=== PATIENT | male | born 1970 | race Caucasian/White ===

== ENCOUNTER → 2020-04-04 14:23 | Outpatient (CLI) | payer BC, SELFPAY ==
[2020-04-04 17:57] LABS: Absolute Lymphocyte Count 1.85 X10^3/uL (0.83-4.51); Absolute Neutrophil Count 5.8 X10^3/uL (2.0-7.7); Basophil# 0.04 X10^3/uL; Basophil% 0.5 % (0-1); Eosinophil# 0.39 X10^3/uL; Eosinophils% 4.5 % (0-5); Hematocrit 50.6 % (40-54); Hemoglobin 16.2 g/dL (13.0-16.5); Lymphocyte # 1.85 X10^3/ul (4.0); Lymphocyte % 21.2 % (19-41); Mean Corpuscular Hgb 25.8 pg (27.0-32.0); Mean Corpuscular Volume 80.4 fL (80-94); Mean Platelet Vol. 10.9 fl (6.2-12.0); Monocyte# 0.61 X10^3/uL; NRBC Flagged by Analyzer 0 % (0-5); Neutrophil # 5.83 X10^3/uL (2.7-7.7); Neutrophil % 66.6 % (47-70); Platelet Count 225 K/mm3 (150-450); RBC Distribution Width CV 12.8 % (11.6-14.6); RBC Distribution Width SD 37.3 fl (35.1-43.9); Red Blood Count 6.29 M/mm3 (4.6-6.2); White Blood Count 8.7 K/mm3 (4.4-11.0)
[2020-04-04 18:13] LABS: Hemoglobin A1c 10.8 % (3.8-5.6)
[2020-04-04 18:22] LABS: AST(SGOT) 22 U/L (15-37); Alanine Aminotransfer ALT/SGPT 58 U/L (16-61); Albumin, Serum 3.8 g/dL (3.2-5.0); Alkaline Phosphatase 111 U/L (45-117); Anion Gap 7 (5-15); BUN 11 mg/dL (7-18); BUN/Creat Ratio 9.3 RATIO (10-20); Calcium,Total 8.8 mg/dL (8.5-10.1); Chloride 100 mmol/L (98-107); Creatinine, Serum 1.18 mg/dL (0.70-1.30); EST Glomerular Filtration Rate 70 mL/min (>60); Est Glom Filt Rate - Afr Amer 84 mL/min (>60); Globulin 3.7 g/dL (2.2-4.2); Glucose 392 mg/dL (74-106); Potassium 3.9 mmol/L (3.5-5.1); Protein, Total 7.5 g/dL (6.4-8.2); Sodium Level 135 mmol/L (136-145); Thyroid Stim Hormone (TSH) 0.94 uIU/mL (0.358-3.74)
== END ==
PROVIDERS: Visit Provider Family Medicine
DX: E78.5 Hyperlipidemia, unspecified (principal); I10 Essential (primary) hypertension; R73.01 Impaired fasting glucose; R53.83 Other fatigue
CPT/HCPCS: 36415; 80053; 83036; 84403; 84443; 85025

== ENCOUNTER → 2021-02-17 | Outpatient (CLI) | payer BC, SELFPAY | END | disposition home or self-care (01) | PROVIDERS: Visit Provider Family Medicine | DX: U07.1 COVID-19 (principal) | CPT/HCPCS: 87635; U0005; U0003 ==

== ENCOUNTER 2022-11-26 13:00 | Day surgery (SDC) | payer OTHER, SELFPAY ==
[2022-11-26] VITALS (8 sets, daily range): BP systolic 149–170; BP diastolic 91–109; PULSE 88–109; RESP 16; TEMP 36.1–36.4; O2SAT 96–97; BMI 34.4
--- NOTE | 2022-11-26 | COLBX_PTH ---
PATIENT: MARCOS THOMPSON LOC: EN U#:[id number] AGE/SX: 52/M ROOM: RE11/26/[address]: Dr. Uriah Parks DO : 1970 BED: DIS: 11/26/2022 SPEC #: [id number] RECD: 11/26/22 18:24 STATUS: ARTUR RELibrado #: [id number] GENARO: 11/26/22 00:[address]: Uriah Parks DEPT: SURGICAL PATHOLOGY RECD BY: Marcos Willis ENTERED: 11/29/22 09:34 SP TYPE: COLON BX OTHR DR: Kendy Primary Care Phys Tissues: Sigmoid colon biopsy Procedures: Surgery Specimen Level IV HEADER OPERATION: Colonoscopy with polypectomy PRE-OP DIAGNOSIS: Screening TISSUE SUBMITTED: Sigmoid polyp MICROSCOPIC DIAGNOSIS Sigmoid colon polyp, biopsy: Tubular adenoma. AM:reji 11/30/2022 MICROSCOPIC DESCRIPTION Slides are reviewed. GROSS DESCRIPTION Received in fixative is one container labeled with the patient's name and designated sigmoid polyp. The specimen consists of one irregular fragment of light paiz soft tissue that measures 1.0 x 0.8 x 0.3 cm. The specimen is bisected and totally submitted in one cassette. / AM:reji 11/29/2022 TC:1 CPT: 07233
[2022-11-26] MEDS: Lactated Ringers 1,000 ML 15 ML IV (14:06)
--- NOTE | 2022-11-26 14:06 | PCM.HP.BLA ---
History and Physical Date of Admission: 11/26/22 52 M who presents to the office today for PMH DMII, anxiety/depression, HTN, obesity, CATA, HLD. ? [facility] need for screening colon[facility]. *[facility] established 8..23 needing screening colonoscopy. Notes reflux a couple times a month with previous use of ranitidine; current use of famotidine or TUMs PRN. Reports NSAID use for knee pain. Postprandial BM with normal consistency and without urgency. ROS Const Constitutional: No anorexia, fatigue, fever(s), weight change or sleep problems Eyes Eyes: No change in vision ENT ENT: No abnormal hearing, difficulty swallowing, mouth lesions, tongue swelling or throat swelling Resp Respiratory: No cough or shortness of breath Cardio Cardiology: No chest pain at rest, chest pain with exertion, shortness of breath or dyspnea on exertion Gastro GI: No difficulty swallowing Genitourinary Male: No difficulty urinating or burning urination Musc Musculoskeletal: No joint pain, joint swelling, muscle weakness or decreased muscle mass Skin Skin: No hair loss in leg, yellowing of the eye, itchy eyes, rash, skin ulcer or skin swelling Neuro Neurology: No abnormal hearing, abnormal movements, confusion, unsteady gait/balance or memory loss Psych Psychiatric: No anxiety, No confusion and No memory loss Endo Endocrine: No fatigue or weight change Aller/Imm Allergy/Immunologic: No itchy eyes, throat swelling or tongue swelling Jorge A/Lymp Hematologic/Lymphatic: No easy bleeding, easy bruising or enlarged lymph nodes Exam Const General: cooperative and comfortable Nutritional Appearance: average body habitus and well nourished [facility] Head: normal to inspection Ears: hearing grossly normal bilaterally Nose: external nose normal Face and sinus: normal facial exam Mouth: oral mucosae normal Throat: posterior oropharynx normal Eyes General: appearance normal, both eyes and all related structures Neck Neck: normal visual inspection Chest Chest palpation & inspection: normal inspection of the chest and normal palpation of entire chest wall Resp Effort & Inspection: normal respiratory effort Auscultation: Bilateral: Clear to Auscultation Cardio Palpation: normal PMI Rate: regular rate Rhythm: regular rhythm GI Inspection: normal to inspection Auscultation: normal bowel sounds Percussion: normal to percussion Palpation: no hepatosplenomegaly Skin General: no rashes or lesions noted Neuro General: patient alert Extrem General: normal to inspection Psych Affect: normal affect Assessment and Plan Assessment and Plan (1) Colon cancer screening: Status: Chronic Plan: He will undergo screening colonoscopy. He was explained alternatives, risk, benefits including not withstanding bleeding, infection, sepsis, perforation, need for emergent surgery and . He will have an ASA of 2. (2) GERD (gastroesophageal reflux disease): Status: Chronic Qualifiers: Esophagitis presence: without esophagitis Qualified Code(s): K21.9 - Gastro-esophageal reflux disease without esophagitis Plan: At this time his gastroesophageal reflux disease is controlled with occasional Tums and occasional Zantac therapy. He does not get symptoms on daily basis. He denies smoking cigarettes, he has no family history of esophageal cancer, he does not have any esophageal dysphagia, nausea, vomiting. I do not think he needs upper endoscopy at this time because he has had mild symptoms for a long time and he does not have any risk factors for poor outcome at this time. Orders: Orders Colonoscopy 11/26/22 Z12.11 - Encounter for screening for malignant neoplasm of colon I have examined the patient and the H&P has been reviewed. There are no clinical changes since date of exam.
[2022-11-26 15:00] LABS: Bedside Glucose 197 mg/dL (74-106)
--- NOTE | 2022-11-26 15:42 | OP.COLON_ITS ---
Patient Name: Marcos Blair Procedure Date: 11/26/2022 3:01 PM Date of : 1970 Age: 52 Procedure: Colonoscopy Indications: Screening for colorectal malignant neoplasm Providers: Uriah Parks DO Medicines: Monitored Anesthesia Care Patient Profile: This is a 52 year old male. Refer to note in patient chart for documentation of history and physical. Last Colonoscopy: none. The patient's first colonoscopy is today. Complications: No immediate complications. Procedure: Pre-Anesthesia Assessment: - Prior to the procedure, a History and Physical was performed, and patient medications and allergies were reviewed. The patient is competent. The risks and benefits of the procedure and the sedation options and risks were discussed with the patient. All questions were answered and informed consent was obtained. Patient identification and proposed procedure were verified by the physician in the pre-procedure area. Mental Status Examination: normal. Airway Examination: normal oropharyngeal airway and neck mobility. Respiratory Examination: clear to auscultation. CV Examination: normal. Prophylactic Antibiotics: The patient does not require prophylactic antibiotics. Prior Anticoagulants: The patient has taken no anticoagulant or antiplatelet agents. ASA Grade Assessment: II - A patient with mild systemic disease. After reviewing the risks and benefits, the patient was deemed in satisfactory condition to undergo the procedure. The anesthesia plan was to use monitored anesthesia care (MAC). Immediately prior to administration of medications, the patient was re-assessed for adequacy to receive sedatives. The heart rate, respiratory rate, oxygen saturations, blood pressure, adequacy of pulmonary ventilation, and response to care were monitored throughout the procedure. The physical status of the patient was re-assessed after the procedure. After I obtained informed consent, the scope was passed under direct vision. Throughout the procedure, the patient's blood pressure, pulse, and oxygen saturations were monitored continuously. The Colonoscope was introduced through the anus and advanced to the terminal ileum. The colonoscopy was performed without difficulty. The patient tolerated the procedure well. The quality of the bowel preparation was adequate. The terminal ileum, ileocecal valve, appendiceal orifice, and rectum were photographed. Scope In: 3:13:53 PM Scope Withdrawal Time 0 hours 10 minutes 13 seconds Scope Out: 3:26:31 PM Total Procedure Duration Time 0 hours 12 minutes 38 seconds Findings: The perianal and digital rectal examinations were normal. A 15 mm polyp was found in the sigmoid colon. The polyp was sessile. The polyp was removed with a hot snare. Resection and retrieval were complete. Verification of patient identification for the specimen was done. Estimated blood loss was minimal. Multiple small and large-mouthed diverticula were found in the recto-sigmoid colon and sigmoid colon. Impression: - One 15 mm polyp in the sigmoid colon, removed with a hot snare. Resected and retrieved. - Diverticulosis in the recto-sigmoid colon and in the sigmoid colon. Recommendation: - Discharge patient to home. - Resume previous diet. - Continue present medications. - Await pathology results. - Repeat colonoscopy in 3 years for surveillance. Procedure Code(s): --- Professional --- 18681, Colonoscopy, flexible; with removal of tumor(s), polyp(s), or other lesion(s) by snare technique CPT copyright 2021 [employer]. All rights reserved. The codes documented in this report are preliminary and upon records management director review may be revised to meet current compliance requirements. Uriah Parks DO 11/26/2022 3:41:57 PM This report has been signed electronically. Number of Addenda: 0 Note Initiated On: 11/26/2022 3:01 PM
== END 2022-11-26 16:29 | disposition home or self-care (01) ==
LOC: EN 13:21 → AC 13:21
PROVIDERS: Visit Provider Internal Medicine Gastroenterology
PROC: 0DJD8ZZ Inspection of Lower Intestinal Tract, Via Natural or Artificial Opening Endoscopic (ICD-10-PCS; CPT 45378; principal; 2022-11-26 13:55)
DX: Z12.11 Encounter for screening for malignant neoplasm of colon (principal); K57.30 Diverticulosis of large intestine without perforation or abscess without bleeding; I10 Essential (primary) hypertension; E66.9 Obesity, unspecified; E78.5 Hyperlipidemia, unspecified; K21.9 Gastro-esophageal reflux disease without esophagitis; D12.5 Benign neoplasm of sigmoid colon; Z79.899 Other long term (current) drug therapy; Z79.84 Long term (current) use of oral hypoglycemic drugs; Z87.19 Personal history of other diseases of the digestive system
CPT/HCPCS: 45385; 82962; 88305; J7120; J2405

== ENCOUNTER → 2023-12-30 | Outpatient (CLI) | payer MEDICARE, BC, SELFPAY ==
[2023-12-30 11:11] LABS: ALB/GLOB Ratio 1.1 RATIO (0.9-2.4); AST(SGOT) 19 U/L (15-37); Alanine Aminotransfer ALT/SGPT 38 U/L (16-61); Albumin, Serum 3.7 g/dL (3.2-5.0); Alkaline Phosphatase 69 U/L (45-117); Anion Gap 7 (5-15); BUN 16 mg/dL (7-18); BUN/Creat Ratio 17.2 RATIO (10-20); Chloride 104 mmol/L (98-107); Cholesterol 218 mg/dL (200); Creatinine, Serum 0.93 mg/dL (0.70-1.30); EST Glomerular Filtration Rate 90 mL/min (>60); Est Glom Filt Rate - Afr Amer 109 mL/min (>60); Globulin 3.5 g/dL (2.2-4.2); Glucose 219 mg/dL (74-106); High Density Lipoprotein 51 mg/dL; PSA,Total- Diagnostic 0.95 ng/mL (0.0-4.0); Potassium 3.4 mmol/L (3.5-5.1); Protein, Total 7.2 g/dL (6.4-8.2); Sodium Level 137 mmol/L (136-145); Triglycerides 174 mg/dL; Very Low Density Lipoprotein 35 mg/dL (5-40)
[2023-12-30 11:17] LABS: Hemoglobin A1c 10.4 % (3.8-5.6)
== END | disposition home or self-care (01) ==
LOC: MTLAB 08:18
PROVIDERS: PCP Family Medicine; Referring Provider Family Medicine; Visit Provider Family Medicine
DX: Z00.00 Encounter for general adult medical examination without abnormal findings (principal); E11.9 Type 2 diabetes mellitus without complications; R53.83 Other fatigue
CPT/HCPCS: 36415; 80053; 80061; 83036; 84153; 84403; 84443

== ENCOUNTER → 2024-06-19 | Outpatient (CLI) | payer MEDICARE, BC, SELFPAY | END | disposition home or self-care (01) | LOC: SL 08:04 | PROVIDERS: PCP Family Medicine; Referring Provider Nurse Practitioner Family; Visit Provider Nurse Practitioner Family | DX: G47.10 Hypersomnia, unspecified (principal) | CPT/HCPCS: 95806 ==

== ENCOUNTER → 2024-07-03 | Outpatient (CLI) | payer MEDICARE, BC, SELFPAY ==
[2024-07-03 10:46] LABS: Anion Gap 12 (5-15); BUN 15 mg/dL (4-19); BUN/Creat Ratio 16.9 RATIO (10-20); Calcium,Total 9.6 mg/dL (7.6-11.0); Carbon Dioxide 22.8 mmol/L (21.0-32.0); Chloride 103 mmol/L (98-108); Cholesterol 145 mg/dL (<=200); Creatinine, Serum 0.89 mg/dL (0.70-1.20); EST Glomerular Filtration Rate 103 (>60); Glucose 145 mg/dL (70-99); High Density Lipoprotein 36 mg/dL; Low Density Lipoprotein Calc. 75 mg/dL; Potassium 3.7 mmol/L (3.3-5.1); Sodium Level 138 mmol/L (133-145); Triglycerides 171 mg/dL; Very Low Density Lipoprotein 34 mg/dL (5-40); cholesterol:hdl ratio screen 4.01
== END | disposition home or self-care (01) ==
LOC: MTLAB 07:45
PROVIDERS: PCP Family Medicine; Referring Provider Family Medicine; Visit Provider Family Medicine
DX: E11.9 Type 2 diabetes mellitus without complications (principal)
CPT/HCPCS: 36415; 80048; 80061

== ENCOUNTER → 2024-12-27 | Outpatient (CLI) | payer MEDICARE, BC, SELFPAY ==
--- OUTSIDE RECORDS SUMMARY | 2024-12-27 06:58 | XMS RPT_ITS | CCD ---
Author Organization [facility] Team Providers Care Freelance Operator Name Role Phone Kami FLOYD, Dr. Epps Primary Care Provider Dr. Mich Mcclure MD Referring Provider [phone] Rober BROOKS-CTrish Attending Provider Rober BRADFORDCTrish Referring Provider Dr. Mich Mcclure MD Attending Provider Mich Mcclure Attending Unavailable Kami, Mich Referring Unavailable Mcclure, Mich Primary Care Unavailable Mcclure, Mich Referring Unavailable Mcclure, Mich Primary Care Unavailable Kami, Mich Attending Unavailable Kami, Mich Primary Care Unavailable Trish Richter Attending Unavailable Trish Richter Referring Unavailable Kami, Mich Referring Unavailable Kami, Mich Primary Care Unavailable Trish Richter Attending Unavailable Kami, Mich Referring Unavailable Kami, Mich Primary Care Unavailable Trish Richter Attending Unavailable SELF, SELF Referring Unavailable DAFNE MONTES Attending Unavailable Medications Current Medications Medication Drug Class(es) Dates Sig (Normalized) Sig (Original) atorvastatin 10 mg oral tablet (3 sources) HMG-CoA Reductase Inhibitor Start: 07-22-2022 take 1 tablet by mouth once daily Atorvastatin 10 mg tablet Active 10 mg PO DAILY July 22, 2022 12:00am busPIRone hydrochloride 10 mg oral tablet (3 sources) Start: 11-24-2022 take 1 tablet by mouth once daily Buspirone 10 mg tablet Active 10 mg PO DAILY November 24, 2022 12:00am escitalopram 5 mg oral tablet (3 sources) Serotonin Reuptake Inhibitor Start: 11-24-2022 take 1 tablet by mouth once daily Escitalopram Oxalate 5 mg tablet Active 5 mg PO DAILY November 24, 2022 12:00am famotidine 20 mg oral tablet (3 sources) Histamine-2 Receptor Antagonist Start: 07-22-2022 Famotidine 20 mg tablet Active 20 mg PO NEEDED July 22, 2022 12:00am glimepiride 1 mg oral tablet (3 sources) Sulfonylurea Start: 07-22-2022 take 1 tablet by mouth once daily Glimepiride 1 mg tablet Active 1 mg PO DAILY July 22, 2022 12:00am hydroCHLOROthiazide 12.5 mg / lisinopril 10 mg oral tablet (3 sources) Thiazide Diuretic, Angiotensin Converting Enzyme Inhibitor Start: 07-22-2022 Lisinopril-Cabot chlorothiazide 10-12.5 mg tablet Active 1 {tbl} PO DAILY July 22, 2022 12:00am meclizine hydrochloride 25 mg oral tablet (3 sources) Antiemetic Start: 04-07-2023 take 1 tablet by mouth three times daily as needed for dizziness Meclizine 25 mg tablet Active 25 mg PO THREE TIMES A DAY as needed for dizziness April 07, 2023 1:00am meloxicam 15 mg oral tablet (3 sources) Nonsteroidal Anti-inflammatory Drug Start: 07-22-2022 take 1 tablet by mouth twice daily Meloxicam 15 mg tablet Active 15 mg PO TWICE A DAY July 22, 2022 12:00am metFORMIN hydrochloride 500 mg oral tablet (3 sources) Biguanide Start: 07-22-2022 take 4 tablets by mouth once daily Metformin 500 mg tablet Active 2000 mg PO DAILY July 22, 2022 12:00am modafinil 100 mg oral tablet (3 sources) Sympathomimetic-li ke Agent Start: 07-22-2022 take 1 tablet by mouth once daily Modafinil 100 mg tablet Active 100 mg PO DAILY July 22, 2022 12:00am Multivitamin With Minerals tablet (3 sources) Start: 07-22-2022 Multivitamin With Minerals tablet Active 1 {tbl} PO DAILY July 22, 2022 12:00am promethazine hydrochloride 25 mg oral tablet (3 sources) Phenothiazine Start: 04-07-2023 take 1 tablet by mouth every four to six hours as needed for nausea and vomiting Promethazine 25 mg tablet Active 25 mg PO EVERY 4-6 HOURS as needed for nausea and vomiting April 07, 2023 1:00am Problems Problem Classification Problem Date Documented Date Episodic/Chronic Diabetes mellitus without complication (1 source) Type 2 diabetes mellitus without complications; Translations: [Type 2 diabetes mellitus without complications] Onset: 07-10-2024 Chronic Esophageal disorders (3 sources) Gastroesophageal reflux disease; Translations: [Gastro-esophageal reflux disease without esophagitis] 10-11-2022 Chronic Other screening for suspected conditions (not mental disorders or infectious disease) (3 sources) Patient encounter status; Translations: [Encounter for screening for malignant neoplasm of colon] 10-11-2022 Episodic Residual codes; unclassified (7 sources) Daytime hypersomnia; Translations: [Hypersomnia, unspecified] 06-13-2024 Chronic Residual codes; unclassified (5 sources) Obstructive sleep apnea syndrome; Translations: [Obstructive sleep apnea (adult) (pediatric)] 06-13-2024 Chronic Residual codes; unclassified (1 source) Hypersomnia, unspecified; Translations: [Hypersomnia, unspecified] Onset: 09-12-2024 Chronic Residual codes; unclassified (1 source) Obstructive sleep apnea (adult) (pediatric); Translations: [Obstructive sleep apnea (adult) (pediatric)] Onset: 09-12-2024 Chronic Unclassified (1 source) Daytime hypersomnia Unclassified (1 source) G47.33 - Obstructive sleep apnea (adult) (pediatric),G47.10 - Hypersomnia, unspecified Unclassified (2 sources) Establish Care; Translations: [Establish Care] Onset: 10-12-2024 Results Test Name Value Interpretation Reference Range Facility Pulmonary Visit Reporton Pulmonary Visit Report [facility] Pulmonary Medicine [address] [place] [place] [address] OFFICE VISIT Date of Service: 09/12/24 MR#: [id number] Acct: [id number] Name: JERRY THOMPSON Rep #: [id number] : 1970 Provider: Trish Richter NP Age/Sex: 54/M Location[place] [facility] [place] Status: Signed Assessment and Plan Assessment and Plan (1) CATA (obstructive sleep apnea): Status: Suspected Plan: Referral to Dr. Montes, [facility] Sleep Medicine, for Virtual Visit. I do suspect that he continues to have a degree of obstructive sleep apnea despite weight loss that has not been able to be detected by home sleep study. Unfortunately, I am unable to write a prescription for a new device based off recent testing and patient is not willing to proceed with in-lab testing due to anxiety. (2) Daytime hypersomnia: Status: Acute Comment: ESS is 16 Plan: Continues. Likely due to untreated sleep apnea verses sleep onset/sleep maintenance insomnia. Avoid drowsy driving. Orders: Referrals Sleep Medicine G47.10 - Hypersomnia, unspecified, G47.33 - Obstructive sleep apnea (adult) (pediatric) Plan Details Follow Up: as needed HPI HPI Comments Details: Patient is a 54 male presents today for follow-up for recent testing for sleep disordered breathing. He is ambulatory currently on room air. He reports that he has had a diagnosis of obstructive sleep apnea in the past. He believes that his last sleep study was from 2014. He stopped using his device approximately 2 years ago because his machine was broken. Prior to that he had used his device for 5 to 10 years before it broke. He was struggling to get a new sleep study set up and a replacement device at that time that his device broke. He continues to report daytime hypersomnia. His notices a snoring and also has witnessed apnea. Since his baseline study he has lost 30 pounds he believes. He indicates that he has significant anxiety around sleep time. He reports that it takes him multiple hours to fall asleep. He reports that he sometimes does not fall asleep until 2 or 3 in the morning and then he awakens at 7 AM to get his children ready for school. He has tried various regimens including [id number] and prescribed medication to help with sleep onset. He does utilize a marijuana gummy" which does provide him some benefit. He is able to fall asleep if he were to watch TV or stretch his legs. He believes he is getting 3-4 hours of sleep nightly. He has no smoking history. He has no history of asthma. He does have a history of pneumonia but has not required hospitalization. Potential occupational exposure includes being [place] [employer] the [place] 6 months. 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 He denies shortness of breath cough wheeze. He denies fever chills body aches. He denies chest pain chest tightness and chest palpitations. He keeps his bedroom cool dark and quiet. Utilizes a sleep mask and keeps his fan on. ESS is 16. Documentation reviewed with patient today includes: Unattended sleep study from June 19, 2024 shows that the study did not meet criteria for sleep apnea. The recommendation is to consider an in laboratory sleep study if the clinical suspicion is high for sleep apnea. Intake Vital Signs 06/13/24 05:45 09/12/24 07:14 Height 5 ft 9 in 5 ft 9 in Weight: 231 lb BMI 34.1 BP 162/99 H Blood Pressure Location Lt brachial Position Sitting Respiration 20 H Pulse 94 Pulse Source Monitor Temp 97.4 F L Temperature Source Temporal Artery Pulse Oximetry (%) 95 Oxygen Delivery Method room air Intake Visit Reasons: 3 M FU Chief Complaint: vertigo sx dizziness vomitting Reconstructive Surgeon Required: No DME Vendor: pap- broken Accompanied by: Self Is patient in pain?: No Allergies No Known Allergies Allergy (Verified 09/12/24 08:44) Medications ???Medication ???Instructions ???Recorded ???Confirmed ???Type atorvastatin 10 mg tablet 10 mg PO DAILY 07/22/22 09/12/24 H istory famotidine 20 mg tablet 20 mg PO PRN 07/22/22 09/12/24 His tory glimepiride 1 mg tablet 1 mg PO DAILY 07/22/22 09/12/24 Hi story lisinopril 10 1 tab PO DAILY 07/22/22 09/12/24 H istory mg-hydrochlorothiaz anitra 12.5 mg tablet meloxicam 15 mg tablet 15 mg PO BID 07/22/22 09/12/24 His tory metformin 500 mg tablet 2,000 mg PO DAILY 07/22/22 5 History modafinil 100 mg tablet 100 mg PO DAILY 07/22/22 09/12/24 History multivitamin with minerals 1 tab PO DAILY 07/22/22 09/12/24 H istory buspirone 10 mg tablet 10 mg PO DAILY 11/24/22 09/12/24 H istory escitalopram oxalate 5 mg tablet 5 mg PO DAILY 11/24/22 09/12/24 Hi story meclizine 25 mg tablet 25 mg PO TID PRN dizziness #30 tab s 04/07/2309/12 (more content not included)... Normal [facility] Anion gap in Serum or Plasma Ordered By: Mich Mcclure on 07-03-2024 Anion gap [Moles/Vol] 12 mmol/L - [facility] BUN/creatinine ratioOrdered By: Mich Mcclure on 07-03-2024 Urea nitrogen/Creatinine [Mass ratio] 16.9 mg/mg - [facility] Basic Metabolic Profile (BMP )on 07-03-2024 BUN/CRE 16.9 RATIO Normal - [facility] Comment on above: Performed By: #### L 500.2500, L500.4100 #### [facility] Laboratory [address] [place], [address] Calcium [Mass/Vol] 9.6 mg/dL Normal 7.6-11.0 [facility] Comment on above: Performed By: #### L 500.2500, L500.4100 #### [facility] [address] [place], [address] Chloride [Moles/Vol] 103 mmol/L Normal 98-108 [facility] Comment on above: Performed By: #### L 500.2500, L500.4100 #### [facility] [address] [place], [address] CO2 [Moles/Vol] 22.8 mmol/L Normal 21.0-32.0 [facility] Comment on above: Performed By: #### L 500.2500, L500.4100 #### [facility] [address] [place], [address] Creatinine [Mass/Vol] 0.89 mg/dL Normal 0.70-1.20 [facility] Comment on above: Performed By: #### L 500.2500, L500.4100 #### [facility] [address] [place], [address] GAP 12 Normal - [facility] Comment on above: Performed By: #### L 500.2500, L500.4100 #### [facility] [address] [place], [address] GFR/1.73 sq M.predicted among non-blacks MDRD (S/P/Bld) [Vol rate/Area] 103 mL/min/{1.73_m2} Normal >60 [facility] Comment on above: Result Comment: mL/m in/1.73m2 CKD-EPI Creatinine Equation (2020) Performed By: #### L 500.2500, L500.4100 #### [facility] [address] [place], [address] Glucose [Mass/Vol] 145 mg/dL High 70-99 [facility] Comment on above: Performed By: #### L 500.2500, L500.4100 #### [facility] [address] [place], [address] Potassium [Moles/Vol] 3.7 mmol/L Normal 3.3-5.1 [facility] Comment on above: Performed By: #### L 500.2500, L500.4100 #### [facility] [address] [place], [address] Sodium [Moles/Vol] 138 mmol/L Normal 133-145 [facility] Comment on above: Performed By: #### L 500.2500, L500.4100 #### [facility] [address] [place], [address] Urea nitrogen [Mass/Vol] 15 mg/dL Normal 4-19 [facility] Comment on above: Performed By: #### L 500.2500, L500.4100 #### [facility] [address] [place], [address] Calculated very low density lipoprotein (VLDL) cholesterol measurementOrdered By: Mich Mcclure on 07-03-2024 Calculated very low density lipoprotein (VLDL) cholesterol measurement 34 mg/dL 5-40 [facility] Carbon dioxide, total [Moles /volume] in Central venous bloodOrdered By: Mich Mcclure on 07-03-2024 CO2 [Moles/Vol] 22.8 mmol/L 21.0-32.0 [facility] Chloride assayOrdered By: Wei Mcclure on 07-03-2024 Chloride [Moles/Vol] 103 mmol/L 98-108 [facility] Glomerular filtration rate ( GFR) estimation/1.73 sq m using serum, plasma, or whole bOrdered By: Mich Mcclure on 07-03-2024 GFR/1.73 sq M.predicted among non-blacks MDRD (S/P/Bld) [Vol rate/Area] 103 mL/min/{1.73_m2} >60 [facility] Comment on above: mL/min/1.73m2 CKD-EP I Creatinine Equation (2020) LDL calc ser/plasOrdered By: Mich Mcclure on 07-03-2024 Cholesterol in LDL [Mass/Vol] 75 mg/dL [facility] Comment on above: Sjlaijosgq=034-010 m g/dL & Higher Xsmy=926 mg/dL or greater Lipid Profileon 07-03-2024 CHOL:HDL 4.01 Normal [facility] Comment on above: Performed By: #### L 500.2500, L500.4100 #### [facility] [address] [place], [address] Cholesterol [Mass/Vol] 145 mg/dL Normal <=200 [facility] Comment on above: Result Comment: Chol esterol level, Desirable <200 mg/dL Borderline high cholesterol 200-239 mg/dL High cholesterol >=240 mg/dL Recommendations of the NCEP Adult Treatment Panel for the following risk-cutoff thresholds for the [place] population. Performed By: #### L 500.2500, L500.4100 #### [facility] [address] [place], [place], [address] Cholesterol in HDL [Mass/Vol] 36 mg/dL Low [facility] Comment on above: Result Comment: Nohemy onal Cholesterol Education Program (NCEP) guidelines: <40 mg/dL: Low HDL-cholesterol (major risk factor for CHD) >= 60 mg/dL: High HDL-cholesterol (negative risk factor for CHD) HDL-cholesterol is affected by a number of factors, e.g. smoking, exercise, hormones, sex and age. Performed By: #### L 500.2500, L500.4100 #### [facility] [address] [place], [address] Cholesterol in LDL [Mass/Vol] 75 mg/dL Normal [facility] Comment on above: Result Comment: Bord isujem=257-460 mg/dL Higher Kxje=591 mg/dL or greater Performed By: #### L 500.2500, L500.4100 #### [facility] [address] [place], [address] Cholesterol in VLDL [Mass/Vol] 34 mg/dL Normal 5-40 [facility] Comment on above: Performed By: #### L 500.2500, L500.4100 #### [facility] [address] [place], [address] Triglyceride [Mass/Vol] 171 mg/dL Normal [facility] Comment on above: Result Comment: The drugs N-Acetylcysteine and Metamizole may falsely depress this assay. Normal range: <150 mg/dL Borderline High: 150-199 mg/dL High: 200-499 mg/dL Very High: >500 mg/dL Performed By: #### L 500.2500, L500.4100 #### [facility] [address] [place], [address] Potassium measurement (mass/ volume)Ordered By: Mich Mcclure on 07-03-2024 Potassium (Unsp spec) [Mass/Vol] 3.7 mmol/L 3.3-5.1 [facility] Screening total cholesterol/ high density lipoprotein (HDL) cholesterol ratioOrdered By: Mich Mcclure on 07-03-2024 Cholesterol.total/Maddie sterol in HDL [Mass ratio] 4.01 {ratio} [facility] Serum creatinine measurement (mass/volume)Ordered By: Mich Mcclure on 07-03-2024 Creatinine [Mass/Vol] 0.89 mg/dL 0.70-1.20 [facility] Serum glucose measurement (m ass/volume)Ordered By: Mich Mcclure on 07-03-2024 Glucose [Mass/Vol] 145 mg/dL High 70-99 [facility] Serum or plasma calcium dean urement (mass/volume)Ordered By: Mich Mcclure on 07-03-2024 Calcium [Mass/Vol] 9.6 mg/dL 7.6-11.0 [facility] Serum or plasma cholesterol in HDL measurement (mass/volume)Ordered By: Mich Mcclure on 07-03-2024 Cholesterol in HDL [Mass/Vol] 36 mg/dL Low >40 [facility] Comment on above: National Cholesterol Education Program (NCEP) guidelines:<40 mg/dL: Low HDL-cholesterol (major risk factor for CHD)>= 60 mg/dL: High HDL-cholesterol (negative risk factor for CHD)HDL-cholesterol is affected by a number of factors, e.g. smoking, exercise, hormones, sex and age. Serum or plasma cholesterol measurement (mass/volume)Ordered By: Mich Mcclure on 07-03-2024 Cholesterol [Mass/Vol] 145 mg/dL <201 [facility] Comment on above: Cholesterol level, D esirable <200 mg/dLBorderline high cholesterol 200-239 mg/dLHigh cholesterol >=240 mg/dLRecommendations of the NCEP Adult Treatment Panel for the following risk-cutoff thresholds for the [place] population. Serum or plasma urea nitroge n measurement (mass/volume)Ordered By: Mich Mcclure on 07-03-2024 Urea nitrogen [Mass/Vol] 15 mg/dL 4-19 [facility] Sodium levelOrdered By: Mich Mcclure on 07-03-2024 Sodium [Moles/Vol] 138 mmol/L 133-145 [facility] Triglycerides measurementOrd ered By: Mich Mcclure on 07-03-2024 Triglyceride [Mass/Vol] 171 mg/dL <199 [facility] Comment on above: The drugs N-Acetylcy steine and Metamizole may falsely depress this assay. Normal range: <150 mg/dLBorderline High: 150-199 mg/dLHigh: 200-499 mg/dLVery High: >500 mg/dL Pulmonary Visit Reporton Pulmonary Visit Report [facility] [place] [address] [place] [address] OFFICE VISIT Date of Service: 06/13/24 MR#: [id number] Acct: [id number] Name: JERRY THOMPSON Rep #: [id number] : 1970 Provider: Trish Richter NP Age/Sex: 54/M Location[place] [facility] [place] Status: Signed Assessment and Plan Assessment and Plan (1) Daytime hypersomnia: Status: Acute Plan: Stop bang equals 7, I recommended a sleep study at this time. Utilizing shared decision making, the patient will undergo a home sleep study at this time. Due to the patient's high levels of anxiety he will likely have difficulty with sleep onset in the sleep lab. I have discussed how the recommendation would then be to proceed with an AutoPap device. Patient understands the importance of treating obstructive sleep apnea. He is agreeable to this plan. I recommend a compliance download prior to follow-up in 3 months. The patient should notify this practice if he struggles with using the device in the meantime. (2) CATA (obstructive sleep apnea): Status: Suspected Plan: I do suspect that he continues to have a degree of obstructive sleep apnea despite weight loss. Orders: Orders Unattended Sleep Study Today G47.10 - Hypersomnia, unspecified Plan Details Follow Up: 3 Months (LMR) HPI HPI Comments Details: Patient is a 54 male presents today for evaluation of sleep disordered breathing. He is ambulatory currently on room air. He is being referred from Dr. Mich Mcclure. He reports that he has had a diagnosis of obstructive sleep apnea in the past. He believes that his last sleep study was from 2014. He stopped using his device approximately 2 years ago because his machine was broken. Prior to that he had used his device for 5 to 10 years before it broke. He was struggling to get a new sleep study set up and a replacement device at that time that his device broke. He continues to report daytime hypersomnia. His notices a snoring and also has witnessed apnea. Since his baseline study he has lost 30 pounds he believes. He indicates that he has significant anxiety around sleep time. He reports that it takes him multiple hours to fall asleep. He reports that he sometimes does not fall asleep until 2 or 3 in the morning and then he awakens at 7 AM to get his children ready for school. He has tried various regimens including [id number] and prescribed medication to help with sleep onset. He does utilize a marijuana gummy" which does provide him some benefit. He has no smoking history. He has no history of asthma. He does have a history of pneumonia but has not required hospitalization. Potential occupational exposure includes being [place] [employer] the [place] 6 months. 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 He denies shortness of breath cough wheeze. He denies fever chills body aches. He denies chest pain chest tightness and chest palpitations. He keeps his bedroom cool dark and quiet. Utilizes a sleep mask and keeps his fan on. ESS is 16. STOP-BANG Assessment: 1. Do you snore? [Y] 2. Are you frequently tired during the day? [Y] 3. Have you been observed gasping or choking while asleep? [Y] 4. Do you have high blood pressure? [Y] 5. BMI - greater than 35kg/m2? [N] 6. Age - over 50 years old? [Y] 7. Neck Circumference - greater than 37 cm for females or 40 cm for males? [Y] 8. Gender - male? [Y] Total STOP-BANG score = [7] which indicates [high] risk for obstructive sleep apnea (yes to 3 or more questions = high risk of sleep apnea). Intake Vital Signs 04/07/23 10:43 06/13/24 05:45 Height 5 ft 9 in 5 ft 9 in Weight: 228 lb BMI 33.6 BP 144/98 H Blood Pressure Location Rt brachial Position Sitting Respiration 18 Pulse 100 Pulse Source Monitor Temp 97.3 F L Temperature Source Temporal Artery Pulse Oximetry (%) 97 Oxygen Delivery Method room air Intake Visit Reasons: CATA Reconstructive Surgeon Required: No Accompanied by: Self Is patient in pain?: No Allergies No Known Allergies Allergy (Verified 06/13/24 08:15) [facility] Medical History (Updated 06/13/24 @ 08:57 by Trish Richter, [employer] SOC[employer] WORKER-C) Wears contact lenses Wears glasses Diabetes Arthritis High cholesterol Restless legs Migraine headache Gastric reflux Non-smoker Sleep apnea Dyslipidemia Vitamin D deficiency Degeneration of intervertebral disc Pilonidal cyst without mention of abscess Type 2 diabetes mellitus Urinary frequency Hyperlipidemia Chronic pain of both knees CATA (obstructive sleep apnea) Hypertension PTSD (post-traumatic stress disorder) Depression Anxiety Surgical History Hx of arthroscopic knee surgery Hx of surgical procedure Hx of hernia (more content not included)... Normal [facility] Comprehensive Metabolic Prof ilon 12-30-2023 Albumin [Mass/Vol] 3.7 g/dL Normal 3.2-5.0 [facility] Comment on above: Performed By: #### L 500.4050, L501.9940, L501.9520, L509.3000, L501.9985, L500.4100 #### [facility] Laboratory [address] [place], [address] Albumin/Globulin [Mass ratio] 1.1 {ratio} Normal 0.9-2.4 [facility] Comment on above: Performed By: #### L 500.4050, L501.9940, L501.9520, L509.3000, L501.9985, L500.4100 #### [facility] [address] [place], [address] ALK P 69 U/L Normal 45-117 [facility] Comment on above: Performed By: #### L 500.4050, L501.9940, L501.9520, L509.3000, L501.9985, L500.4100 #### [facility] [address] [place], [address] ALT [Catalytic activity/Vol] 38 U/L Normal 16-61 [facility] Comment on above: Performed By: #### L 500.4050, L501.9940, L501.9520, L509.3000, L501.9985, L500.4100 #### [facility] [address] [place], [address] AST [Catalytic activity/Vol] 19 U/L Normal 15-37 [facility] Comment on above: Performed By: #### L 500.4050, L501.9940, L501.9520, L509.3000, L501.9985, L500.4100 #### [facility] [address] [place], [address] Bilirubin [Mass/Vol] 1.30 mg/dL High 0.20-1.00 [facility] Comment on above: Result Comment: For patients on eltrombopag therapy, use of Dimension Climax TBIL is not recommended. Performed By: #### L 500.4050, L501.9940, L501.9520, L509.3000, L501.9985, L500.4100 #### [facility] [address] [place], [address] BUN/CRE 17.2 RATIO Normal 10-20 [facility] Comment on above: Performed By: #### L 500.4050, L501.9940, L501.9520, L509.3000, L501.9985, L500.4100 #### [facility] [address] [place], [address] CA,Total 9.0 mg/dL Normal 8.5-10.1 [facility] Comment on above: Performed By: #### L 500.4050, L501.9940, L501.9520, L509.3000, L501.9985, L500.4100 #### [facility] [address] [place], [address] Chloride [Moles/Vol] 104 mmol/L Normal 98-107 [facility] Comment on above: Performed By: #### L 500.4050, L501.9940, L501.9520, L509.3000, L501.9985, L500.4100 #### [facility] [address] [place], [address] CO2 [Moles/Vol] 27.0 mmol/L Normal 21.0-32.0 [facility] Comment on above: Performed By: #### L 500.4050, L501.9940, L501.9520, L509.3000, L501.9985, L500.4100 #### [facility] [address] [place], [address] Creatinine [Mass/Vol] 0.93 mg/dL Normal 0.70-1.30 [facility] Comment on above: Result Comment: The validity of the calculated GFR GFRAA in patients over 70 years has not been determined. Clinical correlation is essential. Performed By: #### L 500.4050, L501.9940, L501.9520, L509.3000, L501.9985, L500.4100 #### [facility] [address] [place], [address] EST GFR - AA 109 mL/min Normal >60 [facility] Comment on above: Result Comment: Afri can Citizen [place] GFR Calc Performed By: #### L 500.4050, L501.9940, L501.9520, L509.3000, L501.9985, L500.4100 #### [facility] [address] [place], [address] GAP 7 Normal 5-15 [facility] Comment on above: Performed By: #### L 500.4050, L501.9940, L501.9520, L509.3000, L501.9985, L500.4100 #### [facility] [address] [place], [address] GFR/1.73 sq M.predicted among non-blacks MDRD (S/P/Bld) [Vol rate/Area] 90 mL/min/{1.73_m2} Normal >60 [facility] Comment on above: Result Comment: Non- GFR Calc Performed By: #### L 500.4050, L501.9940, L501.9520, L509.3000, L501.9985, L500.4100 #### [facility] [address] [place], [address] Globulin (S) [Mass/Vol] 3.5 g/dL Normal 2.2-4.2 [facility] Comment on above: Performed By: #### L 500.4050, L501.9940, L501.9520, L509.3000, L501.9985, L500.4100 #### [facility] [address] [place], [address] Glucose [Mass/Vol] 219 mg/dL High 74-106 [facility] Comment on above: Result Comment: Gluc ose result greater than or equal to 200 mg/dL suggests DIABETES MELLITUS per A.D.A. criteria. Performed By: #### L 500.4050, L501.9940, L501.9520, L509.3000, L501.9985, L500.4100 #### [facility] [address] [place], [address] Potassium [Moles/Vol] 3.4 mmol/L Low 3.5-5.1 [facility] Comment on above: Performed By: #### L 500.4050, L501.9940, L501.9520, L509.3000, L501.9985, L500.4100 #### [facility] [address] [place], [address] Sodium [Moles/Vol] 137 mmol/L Normal 136-145 [facility] Comment on above: Performed By: #### L 500.4050, L501.9940, L501.9520, L509.3000, L501.9985, L500.4100 #### [facility] [address] [place], [address] T PROT 7.2 g/dL Normal 6.4-8.2 [facility] Comment on above: Performed By: #### L 500.4050, L501.9940, L501.9520, L509.3000, L501.9985, L500.4100 #### [facility] [address] [place], [address] Urea nitrogen [Mass/Vol] 16 mg/dL Normal 7-18 [facility] Comment on above: Performed By: #### L 500.4050, L501.9940, L501.9520, L509.3000, L501.9985, L500.4100 #### [facility] [address] [place], [address] Hemoglobin A1con 12-30-2023 HbA1c (Bld) [Mass fraction] 10.4 % High 3.8-5.6 [facility] Comment on above: Result Comment: Norm al < 5.7 % Prediabetic 5.7 - 6.4 % Diabetic >or= 6.5 % Please note range changes. Performed By: #### L 500.4050, L501.9940, L501.9520, L509.3000, L501.9985, L500.4100 #### [facility] [address] [place], [address] Lipid Profileon 12-30-2023 Cholesterol [Mass/Vol] 218 mg/dL High 200 [facility] Comment on above: Result Comment: <200 mg/dL Desirable 200-240 mg/dL Borderline >240 mg/dL High Risk Performed By: #### L 500.4050, L501.9940, L501.9520, L509.3000, L501.9985, L500.4100 #### [facility] [address] [place], [address] Cholesterol in HDL [Mass/Vol] 51 mg/dL Normal [facility] Comment on above: Result Comment: The drugs N-Acetylcysteine and Metamizole may falsely depress this assay. Reference Range HDL <40 mg/dL Low HDL Cholesterol HDL >or= 60 mg/dL High HDL Cholesterol Performed By: #### L 500.4050, L501.9940, L501.9520, L509.3000, L501.9985, L500.4100 #### [facility] [address] [place], [address] Cholesterol in LDL [Mass/Vol] 132 mg/dL High 0-130 [facility] Comment on above: Performed By: #### L 500.4050, L501.9940, L501.9520, L509.3000, L501.9985, L500.4100 #### [facility] [address] [place], [address] Cholesterol in VLDL [Mass/Vol] 35 mg/dL Normal 5-40 [facility] Comment on above: Performed By: #### L 500.4050, L501.9940, L501.9520, L509.3000, L501.9985, L500.4100 #### [facility] [address] [place], [address] Triglyceride [Mass/Vol] 174 mg/dL Normal [facility] Comment on above: Result Comment: The drugs N-Acetylcysteine and Metamizole may falsely depress this assay. Serum Triglycerides Reference Interval Normal <150 mg/dL Borderline high 150 - 199 mg/dL High 200 - 499 mg/dL Very High > or = 500 mg/dL Performed By: #### L 500.4050, L501.9940, L501.9520, L509.3000, L501.9985, L500.4100 #### [facility] [address] [place], [address] PSA,Total- Diagnosticon 11-0 PSA, DIAGNOSTIC 0.95 ng/mL Normal 0.0-4.0 [facility] Comment on above: Result Comment: This test was performed using the TPSA assay method for the [employer]ener[employer] chemistry system. Values obtained with different assay methods cannot be used interchangably. When changing PSA assays in the course of monitoring a patient, additional sequential testing should be carried out to confirm baseline values. Performed By: #### L 500.4050, L501.9940, L501.9520, L509.3000, L501.9985, L500.4100 #### [facility] [address] [place], [place], [address] Testosterone, Serum Totalon 12-30-2023 Testosterone [Mass/Vol] 453.28 ng/dL Normal [facility] Comment on above: Result Comment: CENT RAL 90% REFERENCE RANGES MALE AGE <50 197.44 - 669.58 ng/dL MALE AGE > or = 50 187.72 - 684.19 ng/dL FEMALE AGE <50 8.38 - 35.01 ng/dL FEMALE AGE > or = 50 <7.00 - 35.92 ng/dL Effective as of 09/16/20 Performed By: #### L 500.4050, L501.9940, L501.9520, L509.3000, L501.9985, L500.4100 #### [facility] [address] [place], [place], [address] Thyroid Stim Hormone (TSH)on 12-30-2023 TSH 1.710 uIU/mL Normal 0.358-3.740 [facility] Comment on above: Performed By: #### L 500.4050, L501.9940, L501.9520, L509.3000, L501.9985, L500.4100 #### [facility] [address] [place], [place], [address] Vital Signs Date Time Vital Sign Value Performing Clinician Faci lity 09-12-2024 07:14-0400 Body mass index (BMI) [Ratio] 34.1 kg/m2 Dr. Mich Mcclure MD Work Phone: [facility] 09-12-2024 07:14040 Body temperature 97.4 [degF] Dr. Mich Mcclure MD Work Phone: [facility] 09-12-2024 07:14040 Body weight 104.[address] Mich Mcclure MD Work Phone: [facility] 09-12-2024 07:14-0400 Diastolic blood pressure 99 mm[Hg] Dr. Mich Mcclure MD Work Phone: [facility] 09-12-2024 07:14-0400 Heart rate 94 /min Dr. Mich Mcclure MD Work Phone: 2(663)116-862661 [address] 09-12-2024 07:14-0400 Respiratory rate 20 /min Dr. Mich Mcclure MD Work Phone: [facility] 09-12-2024 07:14-0400 SaO2% (BldA) [Mass fraction] 95 % Dr. Mich Mcclure MD Work Phone: 0(222)323-649194 [place] [address] 09-12-2024 07:14-0400 Systolic blood pressure 162 mm[Hg] Dr. Mich Mcclure MD Work Phone: 2(307)641-521294 [place] [address] 06-13-2024 05:45-0400 Body height 175.[address] Mich Mcclure MD Work Phone: 3([phone])370-688594 [place] [address] 06-13-2024 05:45-0400 Body mass index (BMI) [Ratio] 33.6 kg/m2 Dr. Mich Mcclure MD Work Phone: 8(538)417-927694 [place] [address] 06-13-2024 05:45-0400 Body temperature 97.3 [degF] Dr. Mich Mcclure MD Work Phone: 5(021)496-844528 [place] [address] 06-13-2024 05:45-0400 Body weight 103.[address] Mich Mcclure MD Work Phone: 3(041)028-714428 [place] [address] 06-13-2024 05:45-0400 Diastolic blood pressure 98 mm[Hg] Dr. Mich Mcclure MD Work Phone: 4(707)386-701361 [address] 06-13-2024 05:45-0400 Heart rate 100 /min Dr. Mich Mcclure MD Work Phone: 3(112)911-504628 [place] [address] 06-13-2024 05:45-0400 Respiratory rate 18 /min Dr. Mich Mcclure MD Work Phone: 7(253)980-127328 [place] [address] 06-13-2024 05:45-0400 SaO2% (BldA) [Mass fraction] 97 % Dr. Mich Mcclure MD Work Phone: [facility] 06-13-2024 05:45-0400 Systolic blood pressure 144 mm[Hg] Dr. Mich Mcclure MD Work Phone: [facility] Encounters Encounter Date Encounter Type Care Provider Facility Start: 10-12-2024 ambulatory SELF SELF Facility:[facility] Start: 09-12-2024 End: 09-12-2024 Patient encounter procedure [employer] Trish Rich[facility] Work Phone: Start: 09-12-2024 End: 09-12-[address] Mich Mcclure MD Work Phone: [facility] Start: 07-03-2024 End: 07-03-[address] Mich Mcclure MD Work Phone: [facility] Work Phone: Start: 07-03-2024 End: 07-03-[address] Mich Mcclure MD -[facility] Work Phone: Start: 07-03-2024 End: 07-03-2024 ambulatory Mich Mcclure Facility:[facility] Start: 06-19-2024 End: 06-19-[address] Mich Mcclure MD Work Phone: [facility] Work Phone: Start: 06-19-2024 End: 06-19-2024 Patient encounter procedure CECILIA Richter -[facility] Work Phone: Start: 06-19-2024 End: 06-19-2024 ambulatory Mich Mcclure Facility:[facility] Start: 06-13-2024 End: 06-13-2024 Patient encounter procedure CECILIA Richter [facility] Work Phone: Start: 06-13-2024 End: 06-13-2024 ambulatory Mich Mcclure Facility:[facility] Start: 05-29-2024 Encounter for genera l adult medical examination without abnormal findings Mich Mcclure [facility] Start: 12-30-2023 End: 12-30-2023 ambulatory Mich Mcclure Facility:[facility] Payers Date Payer Category Payer Medicare [id number] 2023 Self-pay 2022 Unknown [id number] 1970 Unknown [id number] [id number] Unknown [id number] 2.16.8 [id number] Unknown [id number] 2.16.8 [id number] Unknown [id number] 2.16.8 [id number] Unknown [id number] 2.16.8 [id number] Unknown [id number] 2.16.8 [id number] Social History Date Type Detail Facility Start: 06-13-2024 Tobacco smoking stat [facility] Never smoked tobacco (finding) [facility] Start: 1970 Sex Assigned At Male [facility] Evaluation note 06-13-2024 Note Date & Type Note Facility 06-13-2024 Evaluation note Diagnosis Onset Date Resolution Daytime hypersomnia acute June 13, 2024 8:09am CATA (obstructive sleep apnea) suspected June 13, 2024 8:09am [facility] Work Phone: Evaluation note 06-13-2024 Note Date & Type Note Facility 06-13-2024 Evaluation note Diagnosis Onset Date Resolution Daytime hypersomnia acute June 13, 2024 8:09am CATA (obstructive sleep apnea) suspected June 13, 2024 8:09am Daytime hypersomnia acute September 12, 2024 8:38am CATA (obstructive sleep apnea) suspected September 12, 2024 8:38am [facility] Work Phone: Hospital Discharge instructions Note Date & Type Note Facility Hospital Discharge instructions Ambulatory OrdersSleep Medicine Location: None Selected [facility] Work Phone: Reason for referral (narrative) Note Date & Type Note Facility Reason for referral (narrative) No reason for referral information available [facility] Work Phone: Chief Complaint and Reason for Visit Chief Complaint Admit Date CATA June 13, 2024 8:0 9am G47.10 - Hypersomnia, unspecified June 19, 2024 8:04am Reason for Visit Admit Date Daytime hypersomnia June 13, 2024 8:0 9am CATA (obstructive sleep apnea) May 8:09am Chief Complaint Admit Date CATA June 13, 2024 8:0 9am G47.10 - Hypersomnia, unspecified June 19, 2024 8:04am FASTING July 03, 2024 7:44a m Chief Complaint Admit Date CATA June 13, 2024 8:0 9am G47.10 - Hypersomnia, unspecified June 19, 2024 8:04am FASTING July 03, 2024 7:44a m 3 M FU September 12, 2024 8:38 am Reason for Visit Admit Date Daytime hypersomnia June 13, 2024 8:0 9am CATA (obstructive sleep apnea) May 8:09am Daytime hypersomnia September 12, 2024 8:38 am CATA (obstructive sleep apnea) September 12, 2024 8:38am Summary Purpose Family History No Family History Records FoundNo Family History Records Found Advance Directives No Advanced Directives Records FoundNo Advanced Directives Records Found Additional Source Comments Care Teams (unrecognized sec tion and content) Team Status: Active Member Role Status Dates Dr. Mich Mcclure MD Primary Care Provider Active Team Status: Inactive Member Role Status Dates Dr. Mich Mcclure MD Primary Care Provider Active Start: June 13, 2024 End: June 13, 2024 Dr. Mich Mcclure MD Referring Provider Active Start: June 13, 2024 End: June 13, 2024 LARRY Girffin Attending Provider Active Start: June 13, 2024 End: June 13, 2024 Team Status: Inactive Member Role Status Dates Dr. Mich Mcclure MD Primary Care Provider Active Start: June 19, 2024 End: June 19, 2024 LARRY Griffin Attending Provider Active Start: June 19, 2024 End: June 19, 2024 LARRY Griffin Referring Provider Active Start: June 19, 2024 End: June 19, 2024 Team Status: Inactive Member Role Status Dates Dr. Mich Mcclure MD Primary Care Provider Active Start: July 03, 2024 End: July 03, 2024 Dr. Mich Mcclure MD Attending Provider Active Start: July 03, 2024 End: July 03, 2024 Dr. Mich Mcclure MD Referring Provider Active Start: July 03, 2024 End: July 03, 2024 Team Status: Active Member Role/Relationship Status Dates Dr. Mich Mcclure MD Primary Care Provider Active Team Status: Inactive Member Role/Relationship Status Dates Dr. Mich Mcclure MD Primary Care Provider Active Start: June 13, 2024 End: June 13, 2024 Dr. Mich Mcclure MD Referring Provider Active Start: June 13, 2024 End: June 13, 2024 Trish Richter NP-C Attending Provider Active Start: June 13, 2024 End: June 13, 2024 Team Status: Inactive Member Role/Relationship Status Dates Dr. Mich Mcclure MD Primary Care Provider Active Start: June 19, 2024 End: June 19, 2024 Trish Richter NP-C Attending Provider Active Start: June 19, 2024 End: June 19, 2024 LARRY Griffin Referring Provider Active Start: June 19, 2024 End: June 19, 2024 Team Status: Inactive Member Role/Relationship Status Dates Dr. Mich Mcclure MD Primary Care Provider Active Start: July 03, 2024 End: July 03, 2024 Dr. Mich Mcclure MD Attending Provider Active Start: July 03, 2024 End: July 03, 2024 Dr. Mich Mcclure MD Referring Provider Active Start: July 03, 2024 End: July 03, 2024 Team Status: Inactive Member Role/Relationship Status Dates Dr. Mich Mcclure MD Primary Care Provider Active Start: September 12, 2024 End: September 12, 2024 Dr. Mich Mcclure MD Referring Provider Active Start: September 12, 2024 End: September 12, 2024 LARRY Griffin Attending Provider Active Start: September 12, 2024 End: September 12, 2024 Goals (unrecognized section and content) Goals may be documented in a n alternate sectionGoals may be documented in an alternate sectionGoals may be documented in an alternate section (unrecognized sect ion and content) No Status Records FoundNo Status Records Found INFORMATION SOURCE (unrecogn ized section and content) DATE CREATED AUTHOR 09/13/2024 [facility] DATE CREATED AUTHOR AUTHOR'S ASHKAN ATJOSE MANUEL 10/13/2024 [facility] FOR RECORDS PERTAINING TO PATIENTS WHO ARE OR HAVE BEEN ENROLLED IN A CHEMICAL DEPENDENCY/SUBSTANCEABUSE PROGRAM, SOME INFORMATION MAY BE OMITTED. This clinical summary was aggregated from multiple sources. Caution should be exercised in using it in the provision of clinical care. This summary normalizes information from multiple sources, and as a consequence, information in this document may materially change the coding, format and clinical context of patient data. In addition, data may be omitted in some cases. CLINICAL DECISIONS SHOULD BE BASED ON THE PRIMARY CLINICAL RECORDS. [employer] provides no warranty or guarantee of the accuracy or completeness of information in this document.
[2024-12-27 07:46] LABS: AST(SGOT) 19 U/L (<=37); Alanine Aminotransfer ALT/SGPT 20 U/L (<=46); Albumin, Serum 4.3 g/dL (3.5-5.0); Alkaline Phosphatase 55 U/L (40-129); Anion Gap 11 (5-15); BUN 16 mg/dL (4-19); BUN/Creat Ratio 19.0 RATIO (10-20); Calcium,Total 9.6 mg/dL (7.6-11.0); Carbon Dioxide 25.6 mmol/L (21.0-32.0); Chloride 102 mmol/L (98-108); Cholesterol 146 mg/dL (<=200); Globulin 3.2 g/dL (2.2-4.2); Glucose 129 mg/dL (70-99); Low Density Lipoprotein Calc. 80 mg/dL; Potassium 3.6 mmol/L (3.3-5.1); Triglycerides 131 mg/dL; Very Low Density Lipoprotein 26 mg/dL (5-40); cholesterol:hdl ratio screen 3.45
== END | disposition home or self-care (01) ==
LOC: LAB 06:44
PROVIDERS: PCP Family Medicine; Referring Provider Family Medicine; Visit Provider Family Medicine
DX: E11.9 Type 2 diabetes mellitus without complications (principal)
CPT/HCPCS: 36415; 80053; 80061